=== PATIENT | male | born 1990 | race Caucasian/White ===

== ENCOUNTER 2023-09-07 17:57 | Emergency (ER) | payer MEDICAID ==
[~2023-09-07] VITALS: Ht 167.6 cm; Wt 87.1 kg
[2023-09-07 18:31] VITALS: BP_SYST 109; PULSE 76; RESP 18; TEMP 98.3; O2SAT 99
[2023-09-07 22:56] LABS: BASOPHILS # (AUTO) 0.1 K/uL (0.0-0.2); BASOPHILS % (AUTO) 0.7 % (0.0-2.0); EOSINOPHILS # (AUTO) 0.1 K/uL (0.0-0.4); EOSINOPHILS % (AUTO) 1.1 % (0.0-4.0); HEMATOCRIT 42.2 % (36-54); HEMOGLOBIN 13.7 g/dL (14.0-18.0); LYMPHOCYTES # (AUTO) 2.8 K/uL (1.0-5.5); LYMPHOCYTES % (AUTO) 29.4 % (20.5-51.5); MEAN CORPUSCULAR HEMOGLOBIN 29 pg (27-31); MEAN CORPUSCULAR HGB CONC 33 % (32-36); MEAN CORPUSCULAR VOLUME 90 fL (79.0-98.0); MONOCYTES # (AUTO) 1.1 K/uL (0.0-1.0); MONOCYTES % (AUTO) 11.5 % (1.7-9.3); NEUTROPHILS # (AUTO) 5.5 K/uL (1.8-7.7); NEUTROPHILS % (AUTO) 57.3 % (40.0-70.0); PLATELET COUNT (AUTO) 371 K/uL (130-430); RED BLOOD CELL COUNT(AUTO) 4.67 MIL/uL (4.2-6.2); RED CELL DISTRIBUTION WIDTH 13.2 % (9.0-15.0); WHITE BLOOD COUNT (AUTO) 9.6 K/uL (4.8-10.8)
[2023-09-07 23:03] LABS: ALBUMIN 3.5 g/dL (3.4-4.8); CALCIUM 8.9 mg/dL (8.4-11.0); CREATININE 0.67 mg/dL (0.55-1.30); POTASSIUM 4.2 mmol/L (3.5-5.1); TOTAL BILIRUBIN 0.1 mg/dL (0.0-1.0)
[2023-09-07] MEDS ORDERED: METO-290 PO (23:32)
[2023-09-07 23:40] VITALS: BP_SYST 109; PULSE 76; RESP 18; TEMP 98.3; O2SAT 99
== END 2023-09-07 23:41 | disposition home or self-care (01) ==
LOC: SED 17:57
DX: R06.6 Hiccough (principal)
CPT/HCPCS: 36415; 80053; 85025; 99283

== ENCOUNTER 2024-01-12 14:55 | Inpatient (IN) | payer MEDICAID, OTHER ==
[~2024-01-12] VITALS: Ht 170.2 cm; Wt 82.1 kg
[~2024-01-12 14:55] MED LIST: METO-290 PO
[2024-01-12 15:03] VITALS: BP_SYST 113; PULSE 97; RESP 20; TEMP 98.1; O2SAT 96
[2024-01-12] MEDS: HALOPERIDOL LACTATE 5 MG/ML VIAL IM ONE (15:37)
[2024-01-12 16:13] LABS: BASOPHILS % (AUTO) 0.5 % (0.0-2.0); EOSINOPHILS % (AUTO) 0.1 % (0.0-4.0); HEMATOCRIT 42.7 % (36-54); HEMOGLOBIN 14.2 g/dL (14.0-18.0); LYMPHOCYTES # (AUTO) 1.2 K/uL (1.0-5.5); MEAN CORPUSCULAR HEMOGLOBIN 30 pg (27-31); MEAN CORPUSCULAR HGB CONC 33 % (32-36); MEAN CORPUSCULAR VOLUME 90 fL (79.0-98.0); MONOCYTES # (AUTO) 0.9 K/uL (0.0-1.0); MONOCYTES % (AUTO) 11.6 % (1.7-9.3); NEUTROPHILS # (AUTO) 5.2 K/uL (1.8-7.7); NEUTROPHILS % (AUTO) 70.8 % (40.0-70.0); PLATELET COUNT (AUTO) 278 K/uL (130-430); RED BLOOD CELL COUNT(AUTO) 4.77 MIL/uL (4.2-6.2); RED CELL DISTRIBUTION WIDTH 13.2 % (9.0-15.0); WHITE BLOOD COUNT (AUTO) 7.3 K/uL (4.8-10.8)
[2024-01-12 16:14] LABS: BILIRUBIN,URINE NEGATIVE (NEGATIVE); BLOOD, URINE 1+ (NEGATIVE); CLARITY/URINE CLEAR (CLEAR); COLOR,URINE YELLOW (YELLOW); GLUCOSE,URINE 3+ (NEGATIVE); KETONES,URINE 3+ (NEGATIVE); LEUKOCYTE ESTERASE ,URINE NEGATIVE (NEGATIVE); NITRITE, URINE NEGATIVE (NEGATIVE); PH,URINE 5.5 (5.0-8.0); PROTEIN URINE TRACE (NEGATIVE); UROBILINOGEN,URINE 0.2 (0.2-1.0)
[2024-01-12 16:28] LABS: BACTERIA,URINE RARE /HPF (None Seen); MUCUS,URINE None Seen /LPF (None Seen); RBC,URINE 0-3 /HPF (0-3)
[2024-01-12 16:34] LABS: URINE AMPHETAMINE NEGATIVE (NEG <=500)
[2024-01-12 16:34] LABS: PROTHROMBIN TIME 10.3 SECS (9.5-12.5)
[2024-01-12 16:35] LABS: BARBITURATE, URINE POSITIVE (NEG <=200); BENZODIAZEPINE, URINE NEGATIVE (NEG <=150); CANNABINOID, URINE NEGATIVE (NEG <=50); COCAINE, URINE NEGATIVE (NEG <=150); METHAMPHETAMINES SCREEN,URINE NEGATIVE (NEG <=500); OPIATE, URINE NEGATIVE (NEG <=100); PHENCYCLIDINE SCREEN,URINE NEGATIVE (NEG <=25); UR TRICYCLIC ANTIDEPRESSANTS NEGATIVE (NEG <=300); URINE METHADONE NEGATIVE (NEG <=200); URINE OXYCODONE SCREEN NEGATIVE (NEG <=100)
[2024-01-12 16:36] LABS: ALANINE AMINOTRANSFERASE 34 U/L (12-78); ALBUMIN 3.4 g/dL (3.4-4.8); ANION GAP 21 (5-15); ASPARTATE AMINOTRANSFERASE 17 U/L (10-37); CALCIUM 8.6 mg/dL (8.4-11.0); CARBON DIOXIDE 14 mmol/L (23-29); CHLORIDE 101 mmol/L (98-107); CREATININE 1.28 mg/dL (0.55-1.30); GFR AFRICAN AMERICAN 83 mL/min (>90); GFR NON AFRICAN-AMERICAN 68 mL/min (>90); GLUCOSE 208 mg/dL (74-106); POTASSIUM 3.9 mmol/L (3.5-5.1); SODIUM SERUM 136 mmol/L (136-145); TOTAL BILIRUBIN 0.4 mg/dL (0.0-1.0); TOTAL PROTEIN, SERUM 7.6 g/dL (6.4-8.3); UREA NITROGEN, BLOOD 12 mg/dL (8-21)
[2024-01-12 17:05] LABS: AMYLASE 37 U/L (0-100); BILIRUBIN,DIRECT 0.1 mg/dL (0.0-0.3); LIPASE 24 U/L (16-77)
[2024-01-12 18:12] LABS: ACETONE, SERUM NEGATIVE (NEGATIVE)
[2024-01-12] MEDS: NACL 0.9% 1,000 ML IV ONE (18:15)
[2024-01-12] MEDS ORDERED: GABA-333 (18:36)
[2024-01-12] MEDS: METOCLOPRAMIDE HCL 10 MG/2 ML VIAL IVP ONE (18:51)
[2024-01-12] MEDS ORDERED: NEU300 PO (19:30)
[2024-01-12] MEDS ORDERED: ERTU15TA PO (19:39)
[2024-01-12] MEDS ORDERED: SITA100T11 PO (19:39)
[2024-01-12] MEDS ORDERED: PRAV20TA59 PO (19:39)
[2024-01-12] MEDS ORDERED: PHEN100C4 PO (19:39)
[2024-01-12] MEDS ORDERED: ONDA-8 TL (19:39)
[2024-01-12] MEDS ORDERED: METF-379 PO (19:39)
[2024-01-12] MEDS ORDERED: LISI-209 PO (19:39)
[2024-01-12] MEDS ORDERED: OFLO5DRO5 EACH EAR (19:46)
[2024-01-12] MEDS ORDERED: AUG875 PO (19:46)
[2024-01-12] MEDS: ONDANSETRON HCL 4 MG/2 ML VIAL IVP PRN (20:12)
[2024-01-12] MEDS: D5/0.45 NS 1,000 ML IV SCH (20:18)
[2024-01-13 09:00] VITALS: BP_SYST 115; PULSE 111; PULSE 96; RESP 18; RESP 20; TEMP 99; O2SAT 96
[2024-01-13] MEDS ORDERED: ONDANSETRON 4 MG ODT TAB TL PRN (11:15)
[2024-01-13 12:00] VITALS: BP_SYST 129; PULSE 108; RESP 20; TEMP 99.1; O2SAT 98
[2024-01-13 12:10] LABS: ABG O2 SAT% ESTIMATE 94.8 % (94.0-100.0); BLOOD GAS BASE EXCESS -19.8 mmol/L (-3.0-3.0); BLOOD GAS PO2 94.2 mmHg (75.0-100.0)
[2024-01-13 12:17] LABS: BLOOD GAS HCO3 7.9 mmol/L (21.0-27.0)
[2024-01-13 12:18] LABS: ALLEN'S TEST POSITIVE (P)
[2024-01-13] MEDS: METOCLOPRAMIDE HCL 10 MG TABLET PO ONE (12:30)
[2024-01-13] MEDS: PHENYTOIN 100 MG CAPSULE PO ONE (14:16)
[2024-01-13] MEDS: cefTRIAXone 1 GM in D5W 50 ML IV SCH (14:17)
[2024-01-13] MEDS: SODIUM BICARBONATE 8.4% JECT 100 MEQ in D5W 1,000 ML IVP SCH (15:20)
[2024-01-13 16:30] VITALS: BP_SYST 123; PULSE 110; RESP 20; TEMP 99.3; O2SAT 96
[2024-01-13] MEDS: INSULIN REGULAR, HUMAN 100 UNITS/ML, 3 ML VIAL (humuLIN R) SUBCUT PRN (18:53)
[2024-01-13 19:00] VITALS: BP_SYST 130; PULSE 126; RESP 16; TEMP 98.6; O2SAT 98
[2024-01-13 20:00] VITALS: BP_SYST 130; PULSE 126; RESP 16; TEMP 98.6; O2SAT 98
[2024-01-13] MEDS ORDERED: PRAVASTATIN SODIUM 20 MG TABLET (PRAVACHOL) PO SCH (21:00)
[2024-01-13] MEDS ORDERED: OFLOXACIN 0.3%, 5 ML EAR DROPS OT SCH (21:00)
[2024-01-13] MEDS: AMOXICILLIN/POTASSIUM CLAV 875 MG TABLET PO SCH (21:35)
[2024-01-13] MEDS: PHENYTOIN 100 MG CAPSULE PO SCH (21:35)
[2024-01-13] MEDS: CIPRO 0.3%/DEXAMETH 0.1% OTIC DRP 7.5 ML EACH EAR SCH (21:35)
[2024-01-13] MEDS: METOCLOPRAMIDE HCL 10 MG TABLET PO SCH (21:36)
[2024-01-13] MEDS: ATORVASTATIN 10 MG TABLET PO SCH (21:36)
[2024-01-13] MEDS: GABAPENTIN 300 MG CAPSULE PO SCH (21:36)
[2024-01-13] MEDS: THORAZINE (chlorproMAZINE) 25 MG TAB PO PRN (21:36)
[2024-01-13] MEDS: ACETAMINOPHEN 325 MG TABLET PO PRN (21:38)
[2024-01-14] VITALS (7 sets, daily range): BP systolic 101–125; PULSE 100–132; RESP 16–18; TEMP 97.2–98.9; O2SAT 94–100
[2024-01-14 00:42] LABS: CALCIUM 8.7 mg/dL (8.4-11.0); CREATININE 1.63 mg/dL (0.55-1.30); POTASSIUM 3.5 mmol/L (3.5-5.1)
[2024-01-14 08:06] LABS: BASOPHILS % (AUTO) 0.2 % (0.0-2.0); HEMATOCRIT 42.8 % (36-54); HEMOGLOBIN 14.7 g/dL (14.0-18.0); LYMPHOCYTES # (AUTO) 1.2 K/uL (1.0-5.5); LYMPHOCYTES % (AUTO) 11.6 % (20.5-51.5); MEAN CORPUSCULAR HEMOGLOBIN 31 pg (27-31); MEAN CORPUSCULAR HGB CONC 34 % (32-36); MEAN CORPUSCULAR VOLUME 90 fL (79.0-98.0); MONOCYTES # (AUTO) 1.5 K/uL (0.0-1.0); MONOCYTES % (AUTO) 14.4 % (1.7-9.3); NEUTROPHILS # (AUTO) 7.6 K/uL (1.8-7.7); NEUTROPHILS % (AUTO) 73.8 % (40.0-70.0); PLATELET COUNT (AUTO) 322 K/uL (130-430); RED BLOOD CELL COUNT(AUTO) 4.77 MIL/uL (4.2-6.2); RED CELL DISTRIBUTION WIDTH 13.8 % (9.0-15.0); WHITE BLOOD COUNT (AUTO) 10.3 K/uL (4.8-10.8)
[2024-01-14 08:24] LABS: CREATININE 1.56 mg/dL (0.55-1.30); POTASSIUM 3.5 mmol/L (3.5-5.1)
[2024-01-14] MEDS: lisinopriL 5 MG TABLET PO SCH (08:24)
[2024-01-14] MEDS: QUEtiapine FUMARATE 25 MG TABLET PO SCH (08:32)
[2024-01-14] MEDS: NS 250 ML IV ONE (10:13)
[2024-01-14 11:51] LABS: ABG O2 SAT% ESTIMATE 96.6 % (94.0-100.0); BLOOD GAS PCO2 26.7 mmHg (32.0-45.0); BLOOD GAS PO2 98.6 mmHg (75.0-100.0)
[2024-01-14 11:54] LABS: ALLEN'S TEST POSITIVE (P); BLOOD GAS BASE EXCESS -14.2 mmol/L (-3.0-3.0); BLOOD GAS HCO3 11.3 mmol/L (21.0-27.0); BLOOD GAS PH 7.245 (7.350-7.450)
[2024-01-14 15:26] LABS: ALBUMIN 3.1 g/dL (3.4-4.8); CALCIUM 8.5 mg/dL (8.4-11.0); CREATININE 1.5 mg/dL (0.55-1.30); POTASSIUM 3.3 mmol/L (3.5-5.1); TOTAL BILIRUBIN 0.5 mg/dL (0.0-1.0); TOTAL PROTEIN, SERUM 7.2 g/dL (6.4-8.3)
[2024-01-15] VITALS: BP_SYST 126; PULSE 126; RESP 18; TEMP 98.4; O2SAT 96
[2024-01-15] MEDS: METOCLOPRAMIDE HCL 10 MG/2 ML VIAL IVP PRN (02:48)
[2024-01-15 04:00] LABS: BASOPHILS % (AUTO) 0.3 % (0.0-2.0); EOSINOPHILS % (AUTO) 0.3 % (0.0-4.0); HEMATOCRIT 38.3 % (36-54); HEMOGLOBIN 13.1 g/dL (14.0-18.0); LYMPHOCYTES # (AUTO) 0.9 K/uL (1.0-5.5); LYMPHOCYTES % (AUTO) 9.9 % (20.5-51.5); MEAN CORPUSCULAR HEMOGLOBIN 30 pg (27-31); MEAN CORPUSCULAR HGB CONC 34 % (32-36); MEAN CORPUSCULAR VOLUME 88 fL (79.0-98.0); MONOCYTES % (AUTO) 11.2 % (1.7-9.3); NEUTROPHILS # (AUTO) 7.3 K/uL (1.8-7.7); NEUTROPHILS % (AUTO) 78.3 % (40.0-70.0); PLATELET COUNT (AUTO) 328 K/uL (130-430); RED BLOOD CELL COUNT(AUTO) 4.34 MIL/uL (4.2-6.2); RED CELL DISTRIBUTION WIDTH 13.6 % (9.0-15.0); WHITE BLOOD COUNT (AUTO) 9.3 K/uL (4.8-10.8)
[2024-01-15 04:48] LABS: CALCIUM 8.4 mg/dL (8.4-11.0); CREATININE 1.39 mg/dL (0.55-1.30); PHOSPHORUS 1.5 mg/dL (2.7-4.5)
[2024-01-15 07:14] LABS: POTASSIUM 2.8 mmol/L (3.5-5.1)
[2024-01-15 07:59] VITALS: BP_SYST 122; PULSE 105; RESP 18; TEMP 97.5; O2SAT 97
[2024-01-15 08:15] VITALS: O2SAT 97
[2024-01-15] MEDS: POTASSIUM CHLORIDE 20 MEQ TABLET.ER PO ONE (11:20)
[2024-01-15 11:25] VITALS: BP_SYST 123; PULSE 75; RESP 16; TEMP 99.3; O2SAT 96
[2024-01-15] MEDS: K PHOS 30 MM in NS 250 ML IV ONE (13:05)
[2024-01-15 13:51] LABS: BILIRUBIN,URINE 1+ (NEGATIVE); BLOOD, URINE 1+ (NEGATIVE); CLARITY/URINE CLEAR (CLEAR); COLOR,URINE YELLOW (YELLOW); GLUCOSE,URINE 3+ (NEGATIVE); KETONES,URINE 3+ (NEGATIVE); LEUKOCYTE ESTERASE ,URINE NEGATIVE (NEGATIVE); NITRITE, URINE NEGATIVE (NEGATIVE); PROTEIN URINE TRACE (NEGATIVE); UROBILINOGEN,URINE 0.2 (0.2-1.0)
[2024-01-15 14:19] LABS: BACTERIA,URINE None Seen /HPF (None Seen); RBC,URINE 0-3 /HPF (0-3); WBC,URINE NONE SEEN /HPF (0-3)
[2024-01-15] MEDS: KCL 20 mEq in D5NS 1000 mL 1,000 ML IV SCH (16:22)
[2024-01-15 16:45] VITALS: BP_SYST 124; PULSE 75; RESP 15; TEMP 99.1; O2SAT 96
[2024-01-15 18:56] LABS: ALBUMIN 2.6 g/dL (3.4-4.8); CALCIUM 7.9 mg/dL (8.4-11.0); CREATININE 1.31 mg/dL (0.55-1.30); TOTAL BILIRUBIN 0.3 mg/dL (0.0-1.0); TOTAL PROTEIN, SERUM 6.2 g/dL (6.4-8.3)
[2024-01-15 20:00] VITALS: BP_SYST 128; PULSE 74; RESP 18; TEMP 98; O2SAT 98
[2024-01-15] MEDS: PHENYTOIN 100 MG CAPSULE PO SCH (20:32)
[2024-01-15] MEDS ORDERED: PHENYTOIN 100 MG CAPSULE PO SCH (21:00)
[2024-01-16] VITALS: BP_SYST 107; PULSE 71; RESP 18; TEMP 98.6; O2SAT 98
[2024-01-16 08:01] VITALS: O2SAT 96
[2024-01-16] MEDS: PHENYTOIN 100 MG CAPSULE PO SCH (09:27)
[2024-01-16 10:12] LABS: BASOPHILS % (AUTO) 0.4 % (0.0-2.0); EOSINOPHILS # (AUTO) 0.1 K/uL (0.0-0.4); EOSINOPHILS % (AUTO) 1.1 % (0.0-4.0); HEMATOCRIT 35.5 % (36-54); HEMOGLOBIN 12.2 g/dL (14.0-18.0); LYMPHOCYTES # (AUTO) 1.3 K/uL (1.0-5.5); LYMPHOCYTES % (AUTO) 17.5 % (20.5-51.5); MEAN CORPUSCULAR HEMOGLOBIN 30 pg (27-31); MEAN CORPUSCULAR HGB CONC 34 % (32-36); MEAN CORPUSCULAR VOLUME 88 fL (79.0-98.0); MONOCYTES # (AUTO) 1.3 K/uL (0.0-1.0); MONOCYTES % (AUTO) 17.5 % (1.7-9.3); NEUTROPHILS # (AUTO) 4.9 K/uL (1.8-7.7); NEUTROPHILS % (AUTO) 63.5 % (40.0-70.0); PLATELET COUNT (AUTO) 309 K/uL (130-430); RED BLOOD CELL COUNT(AUTO) 4.02 MIL/uL (4.2-6.2); RED CELL DISTRIBUTION WIDTH 13.4 % (9.0-15.0); WHITE BLOOD COUNT (AUTO) 7.7 K/uL (4.8-10.8)
[2024-01-16 10:34] LABS: ALBUMIN 2.5 g/dL (3.4-4.8); CALCIUM 8.1 mg/dL (8.4-11.0); CREATININE 1.01 mg/dL (0.55-1.30); TOTAL BILIRUBIN 0.3 mg/dL (0.0-1.0)
[2024-01-16 10:40] LABS: POTASSIUM 2.7 mmol/L (3.5-5.1)
[2024-01-16 12:37] VITALS: BP_SYST 108; PULSE 58; RESP 18; TEMP 98.7; O2SAT 98
[2024-01-16 13:07] LABS: CREATININE, URINE 57.9 mg/dL (Not Estab.); MICROALBUMIN URINE RANDOM 76.7 ug/mL (Not Estab.)
[2024-01-16] MEDS: KCL 20 mEq in NS 1000 mL 1,000 ML IV SCH ×2 (16:02→16:15)
[2024-01-16 16:38] VITALS: BP_SYST 114; PULSE 71; RESP 16; TEMP 99.1; O2SAT 98
[2024-01-16] MEDS: POTASSIUM CHLORIDE 40 MEQ in NS 250 ML IV ONE (18:24)
[2024-01-16 19:00] VITALS: BP_SYST 112; PULSE 60; RESP 16; TEMP 97.7; O2SAT 96; O2SAT 98
[2024-01-16 20:00] VITALS: BP_SYST 112; PULSE 60; RESP 16; TEMP 97.8; O2SAT 96
[2024-01-16 21:59] LABS: TPROTEIN U,24HR 2335.5 mg/24HR (0-130)
[2024-01-16 22:27] LABS: CALCIUM 8.4 mg/dL (8.4-11.0); CREATININE 0.8 mg/dL (0.55-1.30)
[2024-01-16] MEDS: INSULIN GLARGINE 100 UNITS/ML, 10 ML VIAL SUBCUT SCH (23:09)
[2024-01-17] VITALS (7 sets, daily range): BP systolic 110–123; PULSE 52–65; RESP 14–17; TEMP 97.1–97.8; O2SAT 86–98
[2024-01-17 05:52] LABS: BASOPHILS % (AUTO) 0.4 % (0.0-2.0); EOSINOPHILS # (AUTO) 0.1 K/uL (0.0-0.4); EOSINOPHILS % (AUTO) 1.4 % (0.0-4.0); HEMATOCRIT 36.1 % (36-54); HEMOGLOBIN 12.3 g/dL (14.0-18.0); LYMPHOCYTES # (AUTO) 1.8 K/uL (1.0-5.5); LYMPHOCYTES % (AUTO) 27.2 % (20.5-51.5); MEAN CORPUSCULAR HEMOGLOBIN 30 pg (27-31); MEAN CORPUSCULAR HGB CONC 34 % (32-36); MEAN CORPUSCULAR VOLUME 88 fL (79.0-98.0); MONOCYTES % (AUTO) 14.9 % (1.7-9.3); NEUTROPHILS # (AUTO) 3.7 K/uL (1.8-7.7); NEUTROPHILS % (AUTO) 56.1 % (40.0-70.0); PLATELET COUNT (AUTO) 327 K/uL (130-430); RED BLOOD CELL COUNT(AUTO) 4.09 MIL/uL (4.2-6.2); RED CELL DISTRIBUTION WIDTH 13.3 % (9.0-15.0); WHITE BLOOD COUNT (AUTO) 6.6 K/uL (4.8-10.8)
[2024-01-17 07:14] LABS: ALBUMIN 2.3 g/dL (3.4-4.8); CALCIUM 8.2 mg/dL (8.4-11.0); CREATININE 0.69 mg/dL (0.55-1.30); TOTAL BILIRUBIN 0.2 mg/dL (0.0-1.0); TOTAL PROTEIN, SERUM 5.6 g/dL (6.4-8.3)
[2024-01-17 08:14] LABS: POTASSIUM 2.8 mmol/L (3.5-5.1)
[2024-01-17] MEDS ORDERED: INSU100V9 SQ (10:55)
[2024-01-17] MEDS: POTASSIUM CHLORIDE 40 MEQ, LIDOCAINE JECT 2% PF 100 MG 75 MG in NS 250 ML IV ONE (15:09)
[2024-01-17 15:18] LABS: CALCIUM 8.2 mg/dL (8.4-11.0); CREATININE 0.77 mg/dL (0.55-1.30)
[2024-01-17 15:30] LABS: POTASSIUM 2.8 mmol/L (3.5-5.1)
[2024-01-17] MEDS ORDERED: KCL 40 mEq in 100 mL (PREMIX) 40 MEQ, LIDOCAINE JECT 2% PF 100 MG 75 MG in NS 150 ML IV ONE (18:45)
[2024-01-17] MEDS ORDERED: POTASSIUM CHLORIDE 40 MEQ, LIDOCAINE JECT 2% PF 100 MG 75 MG in NS 250 ML IV ONE (19:15)
[2024-01-17 21:39] LABS: CALCIUM 8.1 mg/dL (8.4-11.0); CREATININE 0.71 mg/dL (0.55-1.30); POTASSIUM 3.2 mmol/L (3.5-5.1)
[2024-01-18 00:55] VITALS: BP_SYST 112; PULSE 70; RESP 16; TEMP 98; O2SAT 83
[2024-01-18] MEDS ORDERED: POTASSIUM CHLORIDE 40 MEQ, LIDOCAINE JECT 2% PF 100 MG 75 MG in NS 250 ML IV ONE (01:00)
[2024-01-18] MEDS ORDERED: KCL 20 mEq in 100 mL (PREMIX) 100 ML IV SCH (01:30)
[2024-01-18] MEDS ORDERED: POTASSIUM CHLORIDE 20 MEQ/PKT PACKET PO ONE (02:00)
[2024-01-18] MEDS: POTASSIUM CHLORIDE 20 MEQ/PKT PACKET PO ONE (03:51)
[2024-01-18 07:26] LABS: ALBUMIN 2.2 g/dL (3.4-4.8); CALCIUM 8.3 mg/dL (8.4-11.0); CREATININE 0.54 mg/dL (0.55-1.30); POTASSIUM 3.2 mmol/L (3.5-5.1); TOTAL BILIRUBIN 0.2 mg/dL (0.0-1.0); TOTAL PROTEIN, SERUM 5.6 g/dL (6.4-8.3)
[2024-01-18 08:00] VITALS: O2SAT 99
[2024-01-18 08:03] VITALS: BP_SYST 115; PULSE 68; RESP 17; TEMP 98.4; O2SAT 99
[2024-01-18] MEDS: POTASSIUM CHLORIDE 20 MEQ TABLET.ER PO ONE (08:46)
[2024-01-18 09:51] VITALS: BP_SYST 115; PULSE 68; RESP 17; TEMP 98.4; O2SAT 99
== END 2024-01-18 10:20 | disposition home health service (06) | DRG 420 ==
LOC: SED 14:55 → STU 18:14 → OBSVTOIN 01-14 15:57 → STU 01-15 22:25
PROVIDERS: ADMIT Specialist; ATTEND Specialist
DX: E10.10 Type 1 diabetes mellitus with ketoacidosis without coma (principal); N17.0 Acute kidney failure with tubular necrosis; E78.5 Hyperlipidemia, unspecified; E86.0 Dehydration; H60.93 Unspecified otitis externa, bilateral; K29.70 Gastritis, unspecified, without bleeding; E87.6 Hypokalemia; Z79.84 Long term (current) use of oral hypoglycemic drugs; Z79.899 Other long term (current) drug therapy; Z86.69 Personal history of other diseases of the nervous system and sense organs
CPT/HCPCS: 36415; 36600; 74150-TC; 80048; 80053; 80076; 80185; 80307; 81000; 81001; 81015; 82009; 82043; 82150; 82570; 82803; 82948; 83605; 83690; 83735; 84100; 84156; 84302; 84560; 85025; 85610; 85730; 92610-GN; 96361; 96372; 96374; 99285; G0378; J0696; J1630; J1815; J2405; J2765; J3480; J7050; J7060; J8597; Q0161